=== PATIENT | male | born 1955 | race Caucasian/White ===

== ENCOUNTER 2019-03-03 05:48 | Emergency (ER) | payer BC ==
[~2019-03-03] VITALS: Ht 177.8 cm; Wt 86.2 kg
[2019-03-03] MEDS ORDERED: MONTELUKAST SODI4 M1 (05:58)
[2019-03-03 05:59] VITALS: BP 137/82
[2019-03-03] MEDS ORDERED: NORCO 5-325 TA1 EAC1 PO (06:23)
[2019-03-03] MEDS ORDERED: MELOXICAM15 MG PO (06:23)
== END 2019-03-03 06:35 | disposition home or self-care (01) ==
LOC: M.ERS 05:48
DX: S83.8X2A Sprain of other specified parts of left knee, initial encounter (principal); X50.9XXA Other and unspecified overexertion or strenuous movements or postures, initial encounter; Y93.89 Activity, other specified; Y92.89 Other specified places as the place of occurrence of the external cause; Y99.8 Other external cause status